=== PATIENT | female | born 1960 ===

== ENCOUNTER 2023-10-07 06:27 | Day surgery (SDC) | payer BC ==
[2023-10-05 10:16] VITALS: BMI 32.5
[2023-10-05 10:32] LABS: Hematocrit 39.7 % (34.9-44.5); Hemoglobin 13.3 g/dL (12.0-15.5); Mean Corpuscular HGB CONC 33.5 g/dL (32.0-36.0); Mean Corpuscular Hemoglobin 31.2 pg (27.0-33.0); Mean Corpuscular Volume 93.2 fL (81.6-98.3); Mean Platelet Volume 11.1 fL (7.4-10.4); Platelet Count 230 10x3/uL (150-450); RBC Distribution Width 12.1 % (11.5-14.5); Red Blood Cell (RBC) Count 4.26 10x6/uL (3.90-5.03); White Blood Cell (WBC) Count 5.3 10x3/uL (3.5-10.5)
[2023-10-07] MEDS ORDERED: CeleCOXIB 100 MG CAP ONE (07:17)
[2023-10-07] MEDS ORDERED: fentaNYL 50 mcg/mL 1 mL Vial ONE (09:02)
[2023-10-07] MEDS ORDERED: PROPOFOL 20 ML ONE (09:02)
[2023-10-07] MEDS ORDERED: Clindamycin/D5W 900 mg/50 ml Premix Bag ONE (09:02)
[2023-10-07] MEDS ORDERED: Lidocaine 2% PF 5 ML VIAL ONE (09:03)
[2023-10-07] MEDS ORDERED: Ketorolac Tromethamine 30 MG (1 mL) VIAL ONE (09:05)
[2023-10-07] MEDS ORDERED: Dexamethasone 4 mg/ml Vial ONE (09:05)
[2023-10-07] MEDS ORDERED: Ondansetron PF 4 MG/2 ML Vial ONE (09:05)
[2023-10-07] MEDS ORDERED: ePHEDrine Sulfate 50 MG/10 ML VIAL ONE (09:17)
== END 2023-10-07 11:10 | disposition home or self-care (01) ==
LOC: CSHSDC 06:27
PROVIDERS: ATTEND Obstetrics & Gynecology
PROC: 0UB98ZZ Excision of Uterus, Via Natural or Artificial Opening Endoscopic (ICD-10-PCS; principal; 2023-10-07)
DX: D25.0 Submucous leiomyoma of uterus (principal); N85.01 Benign endometrial hyperplasia; R93.89 Abnormal findings on diagnostic imaging of other specified body structures; E78.5 Hyperlipidemia, unspecified; E55.9 Vitamin D deficiency, unspecified; E66.9 Obesity, unspecified; I10 Essential (primary) hypertension; G47.33 Obstructive sleep apnea (adult) (pediatric); Z87.59 Personal history of other complications of pregnancy, childbirth and the puerperium; Z68.33 Body mass index [BMI] 33.0-33.9, adult; Z88.0 Allergy status to penicillin; Z88.8 Allergy status to other drugs, medicaments and biological substances; Z88.2 Allergy status to sulfonamides; Z79.899 Other long term (current) drug therapy
CPT/HCPCS: 85027; 86850; 86900; 86901; 88305; J1100; J1885; J2001; J2405; J2704; J3010; J3490